=== PATIENT | male | born 1960 | race Caucasian/White ===

== ENCOUNTER 2019-12-01 15:18 | Outpatient (CLI) | payer BC, SELFPAY ==
--- NOTE | 2019-12-01 15:22 | ECG_ITS ---
Measurements Intervals [place] Rate: 53 P: 60 AL: 106 QRS: 29 QRSD: 122 T: 20 QT: 419 QTc: 396 Interpretive Statements SINUS BRADYCARDIA WITH SHORT AL INTERVAL BASELINE ARTIFACT- I, III, AVR, AVL, AVF BORDERLINE ECG Electronically Signed On 12-01-2019 15:46:22 CDT by Yao Nair D.O.
== END 2019-12-01 15:19 | disposition home or self-care (01) ==
PROVIDERS: PCP Family Medicine; Visit Provider Surgery
DX: K40.90 Unilateral inguinal hernia, without obstruction or gangrene, not specified as recurrent (principal); I48.91 Unspecified atrial fibrillation; Z01.812 Encounter for preprocedural laboratory examination; R94.31 Abnormal electrocardiogram [ECG] [EKG]
CPT/HCPCS: 36415; 86850; 86900; 86901; 93005

== ENCOUNTER 2019-12-09 00:58 | Outpatient (CLI) | payer BC, SELFPAY ==
[2019-12-09 18:32] LABS: SARS-CoV-2 RNA PCR Negative
== END 2019-12-09 00:59 | disposition home or self-care (01) ==
LOC: ANHCOVIDDT 00:58
PROVIDERS: Anesthesiology; PCP Family Medicine; Visit Provider Surgery
DX: Z01.812 Encounter for preprocedural laboratory examination (principal); Z11.59 Encounter for screening for other viral diseases
CPT/HCPCS: 87635; C9803; U0003

== ENCOUNTER 2019-12-12 01:42 | Day surgery (SDC) | payer BC, SELFPAY ==
[2019-11-29 09:56] VITALS: BMI 31.1
[2019-12-12] VITALS (11 sets, daily range): BP systolic 111–131; BP diastolic 55–71; PULSE 53–69; RESP 15–22; TEMP 36.1–36.2; O2SAT 97–100
[2019-12-12] MEDS: ACETAMINOPHEN 500 MG TABLET 1000 MG PO (06:55)
[2019-12-12] MEDS: KETOROLAC 15 MG/ML VIAL (*BKC) IV PUSH (06:55)
[2019-12-12] MEDS: LACTATED RINGERS 1,000 ML 30 ML IV CONT ×3 (06:55→11:15)
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
--- NOTE | 2019-12-12 07:08 | WPDHPUPDATE1 ---
History and Physical Update Update Date/Time: 12/12/19 07:08 History and Physical has been reviewed, including an updated exam of the patient. There are NO changes in the patient's condition. Risks, benefits, and alternatives have been discussed and questions answered. Patient agrees to proceed with procedure.
[2019-12-12] MEDS: ceFAZolin 2 GM/D5W 50 ML 2 GM/50 ML BAG IVPB (07:27)
[2019-12-12] MEDS: BUPIVACAINE/EPINEPHRINE 0.5% 10 ML VIAL 30 ML INFILTRATE (08:00)
--- NOTE | 2019-12-12 08:50 | PM.PROC ---
Procedure Note - Detailed Date of procedure: 12/12/19 Pre-op diagnosis: right inguinal hernia Post-op diagnosis: same (Indirect right inguinal hernia) Procedure performed: Laparoscopic right inguinal hernia repair with Progrip mesh, da Milka assisted Description of procedure: Procedure as well as risks, benefits, and alternatives were discussed with the patient. Written consent was obtained and placed in chart prior to procedure. Patient was brought back to surgical suite. he was placed supine on operating table. Time-out was done to confirm patient and procedure. he was then intubated by Anesthesia Department. his abdomen was prepped and draped in sterile fashion using chlorhexidine prep. 0.5% bupivacaine with epinephrine was infiltrated at each location for incision. An 8 mm incision was made in the left lateral abdomen, and a 5 mm Optiview trocar was advanced through the abdominal layers under direct visualization. Once inside the abdominal cavity, carbon dioxide insufflation was used to create a pneumoperitoneum. A camera was inserted and the abdominal cavity was inspected. The patient was placed in slight Trendelenburg position. An 8 millimeter incision was made on the right lateral abdomen and an 8 millimeter trocar was inserted under direct visualization. Another 8 millimeter incision was made just superior to the umbilicus and an 8 millimeter trocar was inserted under direct visualization. The 5 mm port was then removed and this was replaced with another 8 mm robotic port. The robotic arms were brought up to the patient's bedside and secured to the ports. The camera and instruments were inserted. I then moved over to the robotic console and took control of the camera and instruments. After careful inspection of the abdominal cavity, I began scoring the peritoneum along the right lower quadrant using scissors with electrocautery. The preperitoneal plane was entered and this was carefully dissected caudally along the inferior epigastric vessels. Careful dissection with scissors with electrocautery and blunt dissection was used to continue this dissection. I dissected far enough laterally to allow for mesh placement, and also dissected medially to identify the pubic arch and Ralph's ligament. The hernia sac was identified and carefully dissected posteriorly. The cord contents were also identified and the peritoneum was carefully dissected far enough posteriorly to allow for mesh placement. Once an adequate pocket was created, I then placed the mesh within the preperitoneal pocket and carefully unfolded it. The mesh was centered on the hernia defect with adequate overlap circumferentially. The inferior edge of the mesh was inspected to ensure that it was far enough away from the peritoneal edge. The mesh appeared in proper position overlying the entire myopectineal orifice. The peritoneum was then closed over the mesh using a 3-0 V-lock running absorbable suture. The robotic instruments were removed. The robotic arms were disengaged from the ports and moved away from the bedside. The patient was flattened out in bed, the ports were removed under direct visualization, and the pneumoperitoneum was released. The skin of the incisions was approximated using 4-0 Monocryl subcuticular suture, and Exofin glue was applied on top. The patient was awakened from anesthesia, extubated, and transferred to recovery. Implants: Progrip Mesh 10cm x 15cm Anesthesia: GETA and local (0.5% bupivicaine with epi) Surgeon: Abel Loredo DO Estimated blood loss (mL): 5 Drains: No Packing: No Pathology: none sent Complications: No immediate complications Condition: stable Disposition: same day Findings: Zac presents with a painful right groin bulge for the past 1 month. He notes this pain daily. He reports this started after lifting heavy object about 1 month ago. he reports this is worse with activity. he was found to have a reducible right inguina
--- NOTE | 2019-12-12 09:45 | SUR.PHASEI ---
PT AWAKE AND ALERT. STATES MILD SORENESS. REFUSES PAIN MEDICINE AT THIS TIME. READY TO GO HOME . MEETS ANES DISCHARGE CRITERIA.
--- NOTE | 2019-12-12 10:52 | SUR.PHASEII ---
DRINKING LOTS OF WATER; DOES NOT FEEL THE URGE TO URINATE.
--- NOTE | 2019-12-12 12:19 | SUR.PHASEII ---
BLADDER SCANNER 0. CHECKED BY A 2ND RN; CALL TO DR. GUTIERREZ, MESSAGE LEFT.
--- NOTE | 2019-12-12 12:29 | SUR.PHASEII ---
DR. GUTIERREZ CALLED IN OR; HE SAID TO WAIT FOR PT TO URINATE; CONTINUE PO FLUIDS/IV FLUIDS. PT UNDERSTANDS.
--- NOTE | 2019-12-12 14:02 | SUR.PHASEII ---
1245 PT VOIDED SMALL AMOUNT A 2ND TIME. PT STATED IT WAS A NORMAL STREAM.
== END 2019-12-12 13:07 | disposition home or self-care (01) ==
PROVIDERS: PCP Family Medicine; Visit Provider Surgery
PROC: 8E0Y4CZ Robotic Assisted Procedure of Lower Extremity, Percutaneous Endoscopic Approach (ICD-10-PCS; CPT 49650; principal; 2019-12-12 07:30)
DX: K40.90 Unilateral inguinal hernia, without obstruction or gangrene, not specified as recurrent (principal); I10 Essential (primary) hypertension; K21.9 Gastro-esophageal reflux disease without esophagitis; Z87.891 Personal history of nicotine dependence
CPT/HCPCS: 49650; S2900; A9270; C1781; J0690; J1100; J1170; J1885; J2250; J2270; J2405; J2704; J7030; J7120

== ENCOUNTER 2022-01-08 00:30 | Day surgery (SDC) | payer BC, SELFPAY ==
[2022-01-07 11:38] VITALS: BMI 28.3
[2022-01-08] VITALS (11 sets, daily range): BP systolic 107–129; BP diastolic 74–108; PULSE 54–127; RESP 8–24; TEMP 36.4; O2SAT 97–100; BMI 27.9
--- NOTE | 2022-01-08 07:00 | ECG_ITS ---
Measurements Intervals [place] Rate: 56 P: 0 [place]: 123 QRS: 15 QRSD: 102 T: 11 QT: 446 QTc: 431 Interpretive Statements SINUS BRADYCARDIA SHORT WI INTERVAL OTHERWISE NORMAL ECG COMPARED TO ECG 01/08/2022 07:16:46 SINUS BRADYCARDIA NOW PRESENT Electronically Signed On 01-08-2022 9:41:02 CDT by Blayne Jain M.D.
[2022-01-08 07:41] LABS: Anion Gap 8 mmol/L (8-16); Blood Urea Nitrogen 19 mg/dL (9-20); Calcium 8.8 mg/dL (8.4-10.2); Carbon Dioxide 27 mmol/L (22-30); Chloride 104 mmol/L (98-107); Estimated CRCL calculation 82 ml/min; Estimated Glomerular Filt Rate > 60; Glucose 98 mg/dL (65-110); Magnesium 2.1 mg/dL (1.6-2.3); Potassium 4.8 mmol/L (3.4-5.0); Sodium 139 mmol/L (137-145)
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
--- NOTE | 2022-01-08 08:45 | ECG_ITS ---
Measurements Intervals [place] Rate: 99 P: [place]: 0 QRS: 32 QRSD: 97 T: 0 QT: 345 QTc: 444 Interpretive Statements ATRIAL FLUTTER/TACHYCARDIA ABNORMAL ECG COMPARED TO ECG 12/01/2019 15:55:34 ATRIAL FLUTTER NOW PRESENT Electronically Signed On 01-08-2022 9:39:29 CDT by Blayne Jain M.D.
--- NOTE | 2022-01-08 08:58 | P.PCNTEECA_ITS ---
KIERRA with Cardioversion Date of procedure: 01/08/22 Procedure Type: 1. Multiplanar transesophageal echocardiography with color-flow pulse-wave Doppler 2. Agitated saline study 3. Electrical cardioversion 4. Moderate sedation Diagnosis: Atrial flutter Indications: Atrial flutter Description of Procedure: After discussing the risks, benefits alternatives of procedure patient agreeable via verbal and written informed consent. Risks discussed included esophageal rupture perforation, , stroke, bleeding, pain, infection, sore throat, skin irritation burning, shocking into more problematic heart rhythm. After establishing continuous telemetry monitoring, pulse oxygenation and serial blood pressure assessments, procedure was initiated and sedation was started. Procedure start time 8:45 a.m. Procedure stop time 8:57 a.m. A total of 75 mcg of fentanyl and 4 mg of Versed were utilized in divided dosages for moderate sedation. Hurricaine spray to the hypopharynx x2 for topical anesthetic. Patient was monitored and medications were administered by Abby Gresham RN Complications: None Blood loss: None Sedation: As above Findings: KIERRA: Left ventricular size is mildly enlarged with moderately reduced LV function with ejection fraction around 35%. There is moderate left atrial enlargement. Normal right atrial size. Normal right ventricular size and function. Left atrial appendage is normal without mass or thrombus with pulse- wave velocities above to over 100 centimeters/second. Atrial septum is thin. Possible color flow evidence of shunting but agitated saline study was negative. The mitral valve appears normal with mild to moderate mitral regurgitation. Tricuspid valve is normal with mild tricuspid regurgitation. Pulmonic valve is normal with mild pulmonic insufficiency. Aortic valve is trileaflet with trivial aortic insufficiency. Aortic root is grossly normal. No pericardial effusion. Electrical cardioversion: Successful episcopal of sinus rhythm using 150 joules of biphasic synchronized energy Conclusion: 1. Moderately reduced EF of 35% with mild LV enlargement. 2. Moderate left atrial enlargement 3. No left atrial appendage mass or thrombus seen 4. Intact atrial septum via bubble study. Negative agitated saline study 5. [id number] mitral regurgitation with mild tricuspid and pulmonic insufficiency also 6. Successful episcopal of sinus rhythm using 150 joules of synchronized biphasic energy from atrial flutter 7. Moderate sedation
== END 2022-01-08 10:32 | disposition home or self-care (01) ==
PROVIDERS: PCP Family Medicine; Visit Provider Internal Medicine Cardiovascular Disease
PROC: (CPT 93312; principal; 2022-01-08 08:30)
PROC: 5A2204Z Restoration of Cardiac Rhythm, Single (ICD-10-PCS; 2022-01-08 08:30)
DX: I48.92 Unspecified atrial flutter (principal); I34.0 Nonrheumatic mitral (valve) insufficiency; I11.0 Hypertensive heart disease with heart failure; R55 Syncope and collapse; R19.4 Change in bowel habit; Z79.82 Long term (current) use of aspirin; I42.9 Cardiomyopathy, unspecified; R00.0 Tachycardia, unspecified; R00.1 Bradycardia, unspecified; K21.9 Gastro-esophageal reflux disease without esophagitis; Z79.01 Long term (current) use of anticoagulants; F17.210 Nicotine dependence, cigarettes, uncomplicated
CPT/HCPCS: 36415; 80048; 83735; 92960; 93312; 93320; 93325; J2250; J3010; J7030